=== PATIENT | female | born 1980 | race Caucasian/White ===

== ENCOUNTER 2017-10-04 16:25 | Emergency (ER) | payer SELFPAY ==
[2017-10-04 16:26] VITALS: BP 136/94; PULSE 94; RESP 18; TEMP 36.9; O2SAT 99; BMI 29.0
--- NOTE | 2017-10-04 16:35 | EKG12_ITS ---
Test Reason : CP Blood Pressure : / mmHG Vent. Rate : 089 BPM Atrial Rate : 089 BPM P-R Int : 122 ms QRS Dur : 076 ms QT Int : 352 ms P-R-T Axes : 037 027 008 degrees QTc Int : 428 ms Normal sinus rhythm Normal ECG Confirmed by CECILIO RICK MD ([id number]), website/blog editor BLACK MAGANA ([id number]) on 10/07/2017 3:07:46 PM Referred By: Confirmed By:CECILIO RICK MD
--- NOTE | 2017-10-04 17:15 | NURSING ---
NO OLD EKGS
--- NOTE | 2017-10-04 17:26 | ED.VISSUMM ---
- ER Visit Summary Date of Service: 10/04/17 Chief Complaint: Back pain History of Present Illness: The patient is a 36 F states that 2 days ago she had a knot in her left trapezius region. It eventually progressed and has now involved most of the left shoulder and thoracic back musculature. She states that she felt like she is having anxiety attack in class today because it hurts so bad. States hard for her to take a deep breath because of the pain. He has been doing increased amount of sitting and studying. No recent travel or surgery. No prior DVT PE. Recent immobilization. Physical Examination: Afebrile vital signs are stable Gen: Well-nourished well-developed Head: Normocephalic atraumatic Eyes: Perrl EOMI ENT: TMs clear no rhinorrhea moist mucous membranes Neck: Supple no lymphadenopathy no JVD nontender CVS: Regular rate rhythm no murmurs normal S1-S2 Respiratory: No distress clear to auscultation bilaterally chest nontender Abdomen: Soft nontender nondistended normal bowel sounds no masses Back: Exquisite tenderness to palpation along the left trapezius and rhomboid musculature. This feels much tighter than the right. Extremity: Nontender no edema Skin: Normal color no rash Neuro: alert orientated ?3 CN II-XII intact normal strength sensation reflexes gait cerebellar Psych: Anxious and tearful Test Results: EKG demonstrated sinus rhythm with a rate of 89. That was obtained through nursing protocol Emergency Department Course and Treatment: I believe this to be musculoskeletal in nature. I will write for her to have Valium. I will give her a shot of Toradol here. Patient to rest use heat and gentle stretching return if worsening follow-up if not improving Impression: 1. Thoracic back muscle spasm This note was generated with [employer] dictation software. It may contain incorrect words, spelling, and punctuation that were not noted in review of the chart prior to signing ED Disposition - Plan for ED Patient: Disposition: Home or Assisted Living Chief Complaint: Chest Pain Instructions: ED Spasm Back No Trauma Prescriptions: Diazepam [Valium] 5 mg PO Q8 PRN #15 tab PRN Reason: Muscle Spasm Ibuprofen [Motrin] 800 mg PO TID PRN PRN #20 tab PRN Reason: Pain Referrals: [facility],Nighat Meléndez [Primary Care Provider] - 1 Week if not improving
[2017-10-04] MEDS: Ketorolac 60 MG/2 ML Vial IM (18:05)
[2017-10-04 18:24] VITALS: BP 123/80; PULSE 89; RESP 16; O2SAT 97
== END 2017-10-04 18:25 | disposition home or self-care (01) ==
PROVIDERS: Emergency Provider Emergency Medicine
DX: M62.830 Muscle spasm of back (principal); R05 Cough; R07.9 Chest pain, unspecified; R06.00 Dyspnea, unspecified
CPT/HCPCS: 93005; 99282

== ENCOUNTER → 2017-10-06 14:23 | Outpatient (CLI) | payer SELFPAY ==
--- NOTE | 2017-10-06 14:47 | CT_ITS ---
STUDY: CTA CHEST REASON FOR EXAM: Female, 36 years old. One-month history of cough and shortness of breath. Hemoptysis. RADIATION DOSAGE (If Supplied By Facility): CTDIvol = ( 12.6 ) mGy, DLP = ( 476.33 ) mGycm TECHNIQUE: The examination was performed with the intravenous administration of 100 ml of Isovue 300 contrast material. Post-processing of the angiographic images was performed, with multiplanar reformation and 3D reconstruction. Individualized dose optimization techniques were used for this CT. COMPARISON: None. FINDINGS: Normal enhancement of the main pulmonary artery and right and left pulmonary arteries. Normal enhancement of the bilateral peripheral pulmonary arteries. There is no demonstrated pulmonary embolism. Normal thoracic aorta and visualized great vessels. There is no demonstrated aortic dissection. Normal heart and pericardium. Normal mediastinum. Normal hilar regions. Normal visualized trachea and bronchi. The lungs are well expanded. There is evidence of a small left pleural effusion with left basilar infiltration. Patchy infiltrate is also seen in the lingular segment of the left upper lobe. Follow-up is recommended. Normal chest wall structures. Normal osseous structures. Normal visualized upper abdomen. CT/CTA Chest W/WO Contrast IMPRESSION: Small left pleural effusion with infiltration at the left base and patchy infiltrate in the lingular segment as well. Radiographic follow-up is recommended. Electronically Signed: Brant Clark MD at 15:30 EST Tel [phone], Service support ,
== END ==
DX: R06.00 Dyspnea, unspecified (principal); R04.2 Hemoptysis
CPT/HCPCS: 71275; Q9967

== ENCOUNTER → 2017-10-18 16:24 | Outpatient (CLI) | payer SELFPAY ==
--- NOTE | 2017-10-18 16:26 | RAD_ITS ---
STUDY: X-RAY CHEST REASON FOR EXAM: Female, 37 years old. Cough TECHNIQUE: Frontal and lateral views of the chest. COMPARISON: CT 10/06/2017 FINDINGS: Mild left lower lobe alveolar disease, best seen on the lateral view. There is no demonstrated pleural abnormality. Normal size heart. Normal mediastinum and geronimo. Normal visualized pulmonary arteries. Normal visualized aortic arch and descending thoracic aorta. Normal visualized thoracic spine. Normal visualized ribs, clavicles, and shoulders. Abdominal clips. RAD/Chest PA and Lateral IMPRESSION: Mild left lower lobe alveolar disease. Electronically Signed: Chu Sunshine MD at 7:58 EDT Tel , Service support ,
== END ==
PROVIDERS: Visit Provider Nurse Practitioner Family
DX: R04.2 Hemoptysis (principal)
CPT/HCPCS: 71046

== ENCOUNTER → 2018-10-02 11:36 | Outpatient (CLI) | payer MEDICARE, SELFPAY ==
--- NOTE | 2018-10-02 11:44 | BI_ITS ---
MAMMOGRAPHY - BILATERAL SCREENING REASON FOR EXAM: Female, 37 years old. Routine annual screening examination. PERTINENT HISTORY: Grandmother with breast cancer. History of bilateral breast tenderness. TECHNIQUE: Digital bilateral breast rafael (3D mammographic acquisition) in the CC and MLO projections. 2-D mediolateral oblique (MLO) and craniocaudad (CC) views of both breasts were obtained. CAD: Full Field Digital Mammography with Computer Added Detection was performed. COMPARISON: Comparison is made with prior outside examination dated July 20, 2016. FINDINGS: Breast Composition: The breasts are heterogeneously dense, which may obscure small masses. There are no dominant masses or suspicious calcifications. No other significant abnormalities are identified. There has been no significant change since the prior study. BI/SCREENING MAMM (CAD), BILAT IMPRESSION: Stable bilateral screening mammogram. Yearly follow-up mammogram recommended. (A) ASSESSMENT CATEGORY: BIRADS Category 1: Negative. A letter regarding these results will be sent to the patient by the facility within 30 days. Approximately 10% of breast cancers are not detected by mammography. A normal mammogram should not delay biopsy of a clinically suspicious abnormality. [id number] Electronically Signed: Brant Clark, at 13:00 EST , Service support ,
== END ==
PROVIDERS: Referring Provider Nurse Practitioner Family; Visit Provider Nurse Practitioner Family
DX: Z12.31 Encounter for screening mammogram for malignant neoplasm of breast (principal)
CPT/HCPCS: 77063; 77067

== ENCOUNTER 2024-04-25 20:53 | Emergency (ER) | payer MEDICARE, SELFPAY ==
[2024-04-25 20:54] VITALS: BP 154/106; PULSE 100; RESP 18; TEMP 36.6; O2SAT 100; BMI 23.6
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
[2024-04-25 21:49] LABS: Absolute Lymphocyte Count 2.49 X10^3/uL (0.83-4.51); Absolute Neutrophil Count 3.5 X10^3/uL (2.0-7.7); Basophil# 0.06 X10^3/uL; Basophil% 0.9 % (0-1); Eosinophil# 0.22 X10^3/uL; Eosinophils% 3.3 % (0-5); Hematocrit 41.6 % (37-47); Hemoglobin 13.9 g/dL (12.0-15.0); Lymphocyte # 2.49 X10^3/ul (0.83-4.51); Lymphocyte % 37.3 % (19-41); Mean Corp Hgb Conc 33.4 g/dL (32-36); Mean Corpuscular Hgb 33.3 pg (27.0-32.0); Mean Corpuscular Volume 99.5 fL (81-99); Monocyte# 0.44 X10^3/uL; Monocyte% 6.6 % (0-10); NRBC Flagged by Analyzer 0 % (0-5); Neutrophil # 3.45 X10^3/uL (2.7-7.7); Neutrophil % 51.6 % (47-70); Platelet Count 262 K/mm3 (150-450); RBC Distribution Width CV 13.2 % (11.6-14.6); RBC Distribution Width SD 48.9 fl (35.1-43.9); Red Blood Count 4.18 M/mm3 (4.2-5.4); White Blood Count 6.7 K/mm3 (4.4-11.0)
[2024-04-25 22:00] VITALS: BP 116/84; PULSE 74; RESP 16; O2SAT 94
[2024-04-25 22:02] LABS: Internal QC Validated? YES +Cl - CLEAR BKGD; Pregnancy, Serum, hCG Quali. NEGATIVE Negative; Record Kit Lot#, Serum Preg. 772476
[2024-04-25 22:05] LABS: Amphetamine Urine VISTA NEGATIVE (<1000 ng/mL); Barbiturate Urine VISTA NEGATIVE (< 200 ng/mL); Benzodiazepine Urine VISTA NEGATIVE (< 200 ng/mL); Cocaine Urine VISTA NEGATIVE (< 300 ng/mL); Ecstacy Urine VISTA NEGATIVE (< 500 ng/mL); Methadone Urine VISTA NEGATIVE (< 300 ng/mL); PCP Urine VISTA NEGATIVE (< 25 ng/mL); THC Urine VISTA POSITIVE (< 50 ng/mL); Vista UDS pH Range 6
[2024-04-25 22:08] LABS: Prothrombin Time (Protime)PT. 13.1 SECONDS (11.7-14.9)
[2024-04-25 22:09] LABS: AST(SGOT) 19 U/L (15-37); Alanine Aminotransfer ALT/SGPT 22 U/L (13-56); Albumin, Serum 3.8 g/dL (3.2-5.0); Alkaline Phosphatase 108 U/L (45-117); Anion Gap 4 (5-15); BUN 7 mg/dL (7-18); BUN/Creat Ratio 8.4 RATIO (10-20); Calcium,Total 8.6 mg/dL (8.5-10.1); Chloride 108 mmol/L (98-107); Creatinine, Serum 0.83 mg/dL (0.55-1.02); EST Glomerular Filtration Rate 80 mL/min (>60); Est Glom Filt Rate - Afr Amer 97 mL/min (>60); Globulin 3.7 g/dL (2.2-4.2); Glucose 100 mg/dL (74-106); Potassium 3.6 mmol/L (3.5-5.1); Protein, Total 7.5 g/dL (6.4-8.2); Sodium Level 141 mmol/L (136-145)
--- NOTE | 2024-04-25 22:17 | ED.RN ---
PT TOLD THIS RN THAT SHE IS HAVING THOUGHTS OF HARMING HERSELF BUT STATED I WOULD NEVER ACTUALLY HURT MYSELF, I HAVE A SON. MADE AWARE, CRISIS CALLED.
--- NOTE | 2024-04-25 22:18 | ED.RN ---
PER LOY FROM CRISIS, PT ETOH LEVEL NEEDS TO BE UNDER 100 TO BE EVALUATED. CRISIS WILL COME BACK TO EVALUATE.
[2024-04-25 22:56] VITALS: BP 142/94; PULSE 78; RESP 16; O2SAT 94
--- NOTE | 2024-04-25 23:09 | ED.RN ---
THIS RN ENTERED ROOM TO GIVE PT ORDERED ATIVAN, PT REFUSED AND STATED I AM ABOUT TO RUN OUT OF HERE. PT ADVISED IF SHE WANTED TO LEAVE SHE WOULD HAVE TO SIGN A PAPER AMA, AND ADVISED TO WAIT UNTIL IV IS OUT. AMA PAPERS PRINTED.
== END 2024-04-25 23:13 | disposition left against medical advice (07) ==
PROVIDERS: Emergency Provider Emergency Medicine; PCP Family Medicine; Visit Provider Emergency Medicine
DX: F10.129 Alcohol abuse with intoxication, unspecified (principal); F31.9 Bipolar disorder, unspecified; Y90.7 Blood alcohol level of 200-239 mg/100 ml; F17.210 Nicotine dependence, cigarettes, uncomplicated; Z53.29 Procedure and treatment not carried out because of patient's decision for other reasons
CPT/HCPCS: 80048; 80076; 80307; 82077; 84703; 85025; 85610; 96374; 99283; A4216